=== PATIENT | female | born 1990 | race African-American/Black ===

== ENCOUNTER 2020-10-05 00:15 | Observation (INO) | payer MEDICAID ==
[2020-10-05 02:14] VITALS: BP 107/72
== END 2020-10-05 02:30 | disposition home or self-care (01) ==
LOC: UNDOADMOB 00:15 → LDRP 00:15 → UNDODISOB 02:30
PROVIDERS: ADMIT Specialist; ATTEND Specialist
DX: O26.893 Other specified pregnancy related conditions, third trimester (principal); R10.2 Pelvic and perineal pain; O34.219 Maternal care for unspecified type scar from previous cesarean delivery; O99.343 Other mental disorders complicating pregnancy, third trimester; F31.9 Bipolar disorder, unspecified; Z3A.37 37 weeks gestation of pregnancy
CPT/HCPCS: 59025; 81002; 94760; G0378

== ENCOUNTER 2020-10-06 18:52 | Inpatient (IN) | payer MEDICAID ==
[~2020-10-06] VITALS: Ht 170.2 cm; Wt 78.5 kg
[2020-10-06] VITALS (9 sets, daily range): BP systolic 102–144; BP diastolic 61–73
[2020-10-06] MEDS: LACTATED RINGER'S 1,000 ML IV ONE (19:37)
[2020-10-06] MEDS ORDERED: TERBUTALINE SULFATE 1 MG/ML 1ML VIAL SC ONE (19:44)
[2020-10-06] MEDS: TERBUTALINE SULFATE 1 MG/ML 1ML VIAL SC SCH ×2 (19:45→20:05)
[2020-10-06] MEDS ORDERED: ceFAZolin 1GM/50ML 50 ML IV ONE (20:00)
[2020-10-06] MEDS ORDERED: TETRACAINE 1% INJ 2 ML VIAL IJ ONE (20:30)
[2020-10-06] MEDS ORDERED: SUCCINYLCHOLINE CHLORIDE 20 MG/ML 10ML VIAL IV ONE (20:30)
[2020-10-06] MEDS ORDERED: ATROPINE SULF 0.5 MG/5ML SYR ONE (20:32)
[2020-10-06] MEDS ORDERED: fentaNYL CITRATE 100 MCG/2 ML VL ONE (20:32)
[2020-10-06] MEDS ORDERED: ceFAZolin 1GM VL ONE (20:32)
[2020-10-06] MEDS ORDERED: MORPHINE SULF(PF) 0.5MG/ML 10ML VIAL ONE (20:32)
[2020-10-06] MEDS ORDERED: MIDAZOLAM HCL 1MG/1ML-2 ML VIAL ONE (20:32)
[2020-10-06] MEDS ORDERED: ONDANSETRON HCL 4 MG/2 ML VIAL ONE (20:32)
[2020-10-06] MEDS ORDERED: oxyTOCIN 10 UNIT/ML 10ML VIAL ONE (20:32)
[2020-10-06] MEDS ORDERED: SODIUM CHLORIDE LOCK 10 ML ONE (20:32)
[2020-10-06] MEDS ORDERED: EPINEPHrine HCL 1 MG/1 ML AMP ONE (20:38)
[2020-10-06] MEDS ORDERED: ROCURONIUM 10MG/ML 10ML VIAL IV ONE (20:40)
[2020-10-06 21:03] LABS: Basophils # (auto) 0.1 10 ^3/uL (0-0.2); Basophils % (auto) 0.7 % (0.0-2.0); Eosinophils # (auto) 0.1 10 ^3/uL (0-0.8); Eosinophils % (auto) 0.9 % (0.0-7.0); Lymphocytes # (auto) 1.3 10 ^3/uL (0.4-5.4); Lymphocytes % (auto) 16.2 % (10.0-50.0); Mean Corpuscular Hemoglobin 27.7 pg (28.0-32.0); Mean Corpuscular Hgb Conc. 32.4 g/dL (32.0-36.0); Mean Corpuscular Volume 85.4 fL (80.0-100.0); Monocytes # (auto) 0.8 10 ^3/uL (0-1.3); Monocytes % (auto) 9.7 % (0.0-12.0); Neutrophils # (auto) 5.8 10 ^3/uL (1.6-8.6); Neutrophils % (auto) 72.5 % (37.0-80.0); Platelet Count (auto) 184 10^3/uL (140-450); Red Blood Cells 4.34 10^6/uL (4.0-5.20); Red Cell Distribution Width 19.4 % (11.8-14.3)
[2020-10-06 21:11] LABS: Urine Bacteria FEW /hpf (None Seen); Urine Blood Negative /uL (Negative); Urine Specific Gravity 1.006 (1.001-1.035); Urine WBC 5 /hpf (0 - 5)
[2020-10-06 21:19] LABS: INR 0.94 (0.9-1.15); Partial Thromboplastin Time 23.9 sec (23.0-31.2)
[2020-10-06 21:34] LABS: Albumin 2.8 g/dL (3.4-5.0); Calcium 8.8 mg/dL (8.5-10.1); Potassium 3.2 mmol/L (3.5-5.1)
[2020-10-06 21:37] LABS: BUN/Creatinine Ratio 9.8; Bilirubin, Total 0.3 mg/dL (0.2-1.0); Total Protein 7.4 g/dL (6.4-8.2)
[2020-10-06 21:41] LABS: Alcohol, Urine < 3.0 mg/dL (0-10); Amphetamine Screen, Urine NEGATIVE (NEGATIVE); Barbiturate Scree,Urine NEGATIVE (NEGATIVE); Benzodiazephine Screen, Urine NEGATIVE (NEGATIVE); Cannabinoid Screen, Urine POSITIVE (NEGATIVE); Cocaine Screen, Urine NEGATIVE (NEGATIVE); Opiate Scree,Urine NEGATIVE (NEGATIVE); Phencyclidine Screen, Urine NEGATIVE (NEGATIVE)
[2020-10-06] MEDS ORDERED: NEOSTIGMINE 1 MG/ML INJ (10mg/10ML VIAL) ONE (21:41)
[2020-10-06] MEDS ORDERED: GLYCOPYRROLATE 0.2 MG/ML 1ML VIAL ONE (21:41)
[2020-10-06] MEDS ORDERED: HYDROmorphone HCL 2 MG/ML VL IV PRN (22:30)
[2020-10-06] MEDS ORDERED: GUM (CHEWING) 1 GUM CHEW CHEW ONE (22:30)
[2020-10-06] MEDS ORDERED: ONDANSETRON HCL 4 MG/2 ML VIAL IV PRN (22:30)
[2020-10-06] MEDS ORDERED: ONDANSETRON HCL 4 MG/2 ML VIAL IV ONE (22:40)
[2020-10-06] MEDS ORDERED: HYDROmorphone HCL 2 MG/ML VL IV ONE (22:40)
--- NOTE | 2020-10-06 22:58 | NUR ---
Post Op for LDRP: Received patient from PACU via bed to room 8B. Patient A/Ox4, abdominal binder and bilateral SCD's are in place, IV fluids placed on pump and infusing per order, incisional site dressing clean/dry/intact and Bailey Catheter to gravity draining clear yellow urine. Incentive Spirometer at bedside and instruction on proper use with return demonstration done by patient.
[2020-10-06] MEDS: KETOROLAC TROMETH 30 MG/ML 1ML VIAL IV PRN (23:16)
[2020-10-07] MEDS: LACTATED RINGER'S 1,000 ML IV ONE
[2020-10-07] MEDS ORDERED: INFLUENZA QUAD 2020-2021 0.5 ML SYRG IM ONE (02:45)
[2020-10-07 03:00] VITALS: BP 112/74
[2020-10-07] MEDS: KETOROLAC TROMETH 30 MG/ML 1ML VIAL IV PRN ×2 (05:07→13:03)
[2020-10-07] MEDS: ceFAZolin 1GM/50ML 50 ML IV SCH ×3 (05:08→21:00)
[2020-10-07 07:30] VITALS: BP 101/62
--- NOTE | 2020-10-07 09:30 | NUR ---
Johanna care performed. new pads replaced, dressing removed, 12 gabriela notes, site benign and is well approximated. Pt ambulates to chair with steady gait and no signs of distress. Matamoros catheter dc'd Order to discontinue matamoros catheter. Matamoros dc'd with clean technique following deflation of balloon. Patient tolerated well with no complaints of pain. Continue care.
[2020-10-07 10:30] LABS: Basophils # (auto) 0 10 ^3/uL (0-0.2); Basophils % (auto) 0.1 % (0.0-2.0); Eosinophils # (auto) 0 10 ^3/uL (0-0.8); Hematocrit 33.5 % (36.0-46.0); Hemoglobin 10.9 g/dL (12.2-16.2); Lymphocytes # (auto) 1.1 10 ^3/uL (0.4-5.4); Lymphocytes % (auto) 6.1 % (10.0-50.0); Mean Corpuscular Hemoglobin 27.7 pg (28.0-32.0); Mean Corpuscular Hgb Conc. 32.6 g/dL (32.0-36.0); Mean Corpuscular Volume 85.1 fL (80.0-100.0); Monocytes # (auto) 1.9 10 ^3/uL (0-1.3); Neutrophils # (auto) 15.8 10 ^3/uL (1.6-8.6); Neutrophils % (auto) 83.8 % (37.0-80.0); Platelet Count (auto) 176 10^3/uL (140-450); Red Blood Cells 3.94 10^6/uL (4.0-5.20); Red Cell Distribution Width 19.4 % (11.8-14.3); White Blood Cell 18.9 10^3/uL (4.4-10.8)
[2020-10-07 11:10] VITALS: BP 126/68
--- NOTE | 2020-10-07 11:15 | NUR ---
PATIENT ASSISTED TO BR WITH MINIMAL ASSISTANCE, VOIDED 700ML WITHOUT DIFFICULTY. INSTRUCTED ON PERICARE AND PT RETURN DEMONSTRATED. GOWN CHANGED. PT RETURNED BACK TO BED INDEPENDENTLY.
[2020-10-07] MEDS: LACTATED RINGER'S 1,000 ML IV SCH ×2 (13:04)
--- NOTE | 2020-10-07 14:29 | NUR ---
Assessment Social Service consult regarding positive drug screen for: THC. Baby positive for drug screen. Discussed with pt UDS and source of positive results. Per patient he has a history of Bipolar Disorder and treats her Bipolar disorder with THC tablets that stabilizes her mood. Patient informed me sees a therapist and psychiatrists. Per patient she has notified therapist about taking THC tablets and informing therapist is the only thing that helps control her disorder. Patient informed me she did not know she was until 6 month and began to decrease the THC tablet doses. Patient resides with family and will have assistance with baby upon discharge. Patient has great family support. Patient has all supplies as well as car seat for baby and will be bottle. Patient has medical insurance for herself/baby and will be following up with provider appointment post discharge. Patient has transportation home upon discharge. Due to positive drug screen CPS contacted and report made to KYLIE Arzate. Per KYLIE Arzate with CPS she will be contacting me with a case number.
[2020-10-07 15:48] VITALS: BP 112/78
[2020-10-07] MEDS ORDERED: POTASSIUM CHL 20 Meq TABLET PO ONE (16:45)
[2020-10-07 19:30] VITALS: BP 109/54
[2020-10-07] MEDS ORDERED: ceFAZolin 1GM/50ML 50 ML IV ONE (20:57)
[2020-10-07 23:00] VITALS: BP 108/70
[2020-10-07] MEDS ORDERED: HYDROcodone-ACET 5/325MG TAB PO PRN (23:45)
[2020-10-08 03:00] VITALS: BP 104/63
[2020-10-08] MEDS: IBUPROFEN 800 MG TAB PO PRN ×3 (04:12→22:19)
[2020-10-08 05:07] LABS: RPR Non Reactive (Non Reactive)
[2020-10-08] MEDS: HYDROcodone-ACET 5/325MG TAB PO PRN ×2 (06:50→18:36)
[2020-10-08] MEDS: DOCUSATE SOD 100 MG CAP PO SCH ×2 (06:50→22:19)
[2020-10-08 07:00] VITALS: BP 106/64
--- NOTE | 2020-10-08 08:40 | NUR ---
THIS RN AT BEDSIDE DISCUSSED INGESTION, VAPING, SMOKING THC. PT WAS OPEN AND TRANSPARENT AND STATED IT WAS HER DESIRE TO BREASTFEED AND A RESULT, AFTER DOING RESEARCH, SHE, (THE PATIENT) DECIDED TO CURB HER INTAKE OF MARIJUANA. SHE FURTHER STATED THAT SHE WILL ONLY TAKE WHEN SHE IN IN A MANIC STATE OF HER BIPOLERISM. PT DEMONSTRATED LATCH, POSITIONING, AND EXPRESSED A LARGE AMOUNT OF COLOSTRUM. 10/10 LATCH SCORE.
--- NOTE | 2020-10-08 10:41 | NUR ---
ENDORSED CARE TO YOSVANY CAMPOS RN.
[2020-10-08 11:00] VITALS: BP 109/66
[2020-10-08 15:00] VITALS: BP 109/70
--- NOTE | 2020-10-08 15:58 | NUR ---
Received a call from KYLIE Arzate with CPS [phone].
--- NOTE | 2020-10-08 16:01 | NUR ---
Spoke with Tash from [facility] [employer] regarding Post depression scale 16, she states she spoke with patient regarding hx of depression/bipolar and patient stated she has a good support system and spoke with her therapist this morning and she will make a note regarding the consultation.
[2020-10-08 19:00] VITALS: BP 121/68
[2020-10-08] MEDS ORDERED: PRENTAB40 OR (21:07)
[2020-10-08] MEDS ORDERED: INFLUENZA QUAD 2020-2021 0.5 ML SYRG IM ONE (21:47)
[2020-10-08 22:30] VITALS: BP 115/64
[2020-10-08] MEDS ORDERED: BISACODYL 10 MG RECT SUPP PR ONE (23:15)
[2020-10-09 03:00] VITALS: BP 96/74
[2020-10-09 07:40] VITALS: BP 121/89
[2020-10-09 11:00] VITALS: BP 121/71
--- NOTE | 2020-10-09 12:35 | NUR ---
Discharge: Discharge instructions given as ordered. Pt encouraged to follow up with PATIENT TRANSPORTER as instructed. All questions and concerns addressed. Patient verbalized understanding. Medication reconciliation completed and copy given to patient. All required/requested vaccines given and copies of vaccinations given to patient. Patient encouraged to prepare to depart unit.
--- NOTE | 2020-10-09 12:50 | NUR ---
Discharge: Patient ambulates to vehicle with all personal belongings, accompanied by staff and family member. No distress noted at time of departure, no adverse changes in status since initial assessment.
== END 2020-10-09 13:50 | disposition home or self-care (01) | DRG 540 ==
LOC: LDRP 18:52 → OBSVTOIN 19:51 → LDRP 22:15
PROVIDERS: ADMIT Specialist; ATTEND Specialist
PROC: 10D00Z1 Extraction of Products of Conception, Low, Open Approach (ICD-10-PCS; principal; 2020-10-06 21:10)
DX: O34.211 Maternal care for low transverse scar from previous cesarean delivery (principal); O99.344 Other mental disorders complicating childbirth; F31.9 Bipolar disorder, unspecified; Z37.0 Single live birth; Z3A.38 38 weeks gestation of pregnancy; O99.324 Drug use complicating childbirth; F12.90 Cannabis use, unspecified, uncomplicated; Z20.828 Contact with and (suspected) exposure to other viral communicable diseases; Z23 Encounter for immunization
CPT/HCPCS: 36415; 59025; 80053; 80307; 81001; 81002; 85025; 85610; 85730; 86592; 86850; 86900; 86901; 87426; 94760; 96360; 96361; 96365; 96372; 96374; G0378; J0171; J0330; J0461; J0690; J1885; J2250; J2405; J2590